=== PATIENT | female | born 1990 | race American Indian/Alaskan Native ===

== ENCOUNTER 2017-06-05 13:01 | Emergency (ER) | payer MEDICAID, OTHER ==
[2017-06-05] MEDS ORDERED: MOTRIN PO ONE (19:17)
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
[2017-06-05 19:57] VITALS: BP 128/76
== END 2017-06-05 19:57 | disposition home or self-care (01) ==
LOC: ED 13:01
DX: S13.4XXA Sprain of ligaments of cervical spine, initial encounter (principal); Z88.8 Allergy status to other drugs, medicaments and biological substances; J45.909 Unspecified asthma, uncomplicated; V89.2XXA Person injured in unspecified motor-vehicle accident, traffic, initial encounter; Y93.89 Activity, other specified; Y92.89 Other specified places as the place of occurrence of the external cause; Y99.8 Other external cause status
CPT/HCPCS: 99282

== ENCOUNTER 2018-11-26 06:17 | Emergency (ER) | payer SELFPAY ==
[2018-11-26 06:23] VITALS: BP 113/65
[2018-11-26] MEDS ORDERED: TORADOL IM ONE (08:25)
--- NOTE | 2018-11-26 08:25 | Emergency Department Report ---
ED ENT HPI - General Chief complaint: Dental/Oral Stated complaint: TOOTHACHE Source: patient Mode of arrival: Ambulatory Limitations: No Limitations - History of Present Illness Initial comments: This is a 28-year-old -[place] Citizen female presents to the emergency room with dental pain for 2 days. Patient reports pain is on the left lower side. She reported to the #18 broke last week and pain started 2 days ago. He reports mild swelling. She is currently taken ibuprofen with no relief of pain. She denies difficulty swallowing, drooling, fever, or sore throat. MD complaint: tooth pain Onset/Timin -: days(s) Location: tooth # (18) Severity: moderate Severity scale (0 -10): 7 Quality: aching Consistency: intermittent Improves with: none Worsens with: eating Context- Dental: history of dental caries, trauma, poor dental care Associated Symptoms: gum swelling, toothache. denies: fever, cough, pain with swallowing, sore throat, tinnitus, hearing loss, discharge from ear, rhinorrhea - Related Data Previous Rx's Medication Instructions Recorded Last Taken Type Albuterol Sulfate [Proventil HFA] 2 puff IH Q6H PRN #1 inh 01/18/14 Unknown Rx Azithromycin [Zithromax Z-QAMAR] 250 mg PO DAILY #6 tablet 01/18/14 Unknown Rx Promethazine /Codeine 5 ml PO Q6H PRN #120 ml 01/18/14 Unknown Rx [Phenergan/Codeine 6.25-10 mg/5 ml] methOCARBAMOL [Robaxin TAB] 500 mg PO BID #10 tab 06/05/17 Unknown Rx Clindamycin [Clindamycin CAP] 300 mg PO Q8H #30 cap 04/08/18 Unknown Rx Ibuprofen [Motrin 600 MG tab] 600 mg PO Q8H PRN #30 tablet 04/08/18 Unknown Rx Clindamycin [Clindamycin CAP] 300 mg PO Q8H #21 cap 11/26/18 Unknown Rx Naproxen [Naprosyn TAB] 500 mg PO BID PRN #20 tablet 11/26/18 Unknown Rx traMADol [Ultram 50 MG tab] 50 mg PO Q6HR PRN #12 tablet 11/26/18 Unknown Rx Allergies Allergy/AdvReac Type Severity Reaction Status Date / Time cephalexin AdvReac Itching Verified 01/18/14 14:59 ED Dental HPI - General Chief complaint: Dental/Oral Stated complaint: TOOTHACHE Source: patient Mode of arrival: Ambulatory Limitations: No Limitations - Related Data Previous Rx's Medication Instructions Recorded Last Taken Type Albuterol Sulfate [Proventil HFA] 2 puff IH Q6H PRN #1 inh 01/18/14 Unknown Rx Azithromycin [Zithromax Z-QAMAR] 250 mg PO DAILY #6 tablet 01/18/14 Unknown Rx Promethazine /Codeine 5 ml PO Q6H PRN #120 ml 01/18/14 Unknown Rx [Phenergan/Codeine 6.25-10 mg/5 ml] methOCARBAMOL [Robaxin TAB] 500 mg PO BID #10 tab 06/05/17 Unknown Rx Clindamycin [Clindamycin CAP] 300 mg PO Q8H #30 cap 04/08/18 Unknown Rx Ibuprofen [Motrin 600 MG tab] 600 mg PO Q8H PRN #30 tablet 04/08/18 Unknown Rx Clindamycin [Clindamycin CAP] 300 mg PO Q8H #21 cap 11/26/18 Unknown Rx Naproxen [Naprosyn TAB] 500 mg PO BID PRN #20 tablet 11/26/18 Unknown Rx traMADol [Ultram 50 MG tab] 50 mg PO Q6HR PRN #12 tablet 11/26/18 Unknown Rx Allergies Allergy/AdvReac Type Severity Reaction Status Date / Time cephalexin AdvReac Itching Verified 01/18/14 14:59 ED Review of Systems ROS: Stated complaint: TOOTHACHE Other details as noted in HPI Constitutional: denies: chills, fever ENT: dental pain. denies: ear pain, throat pain Respiratory: denies: cough, shortness of breath, wheezing Cardiovascular: denies: chest pain, palpitations Gastrointestinal: denies: abdominal pain, nausea, diarrhea Skin: denies: rash, lesions Neurological: denies: headache, weakness, paresthesias Psychiatric: denies: anxiety, depression ED Past Medical Hx - Past Medical History Previous Medical History?: No Hx Asthma: (Bronchitis) - Surgical History Past Surgical History?: Yes Additional Surgical History: Orthopaedic right foot - Social History Smoking Status: Former Smoker Substance Use Type: Marijuana - Medications Home Medications: Home Medications Medication Instructions Recorded Confirmed Last Taken Type Albuterol Sulfate [Proventil HFA] 2 puff IH Q6H PRN #1 inh 01/18/14 Unknown Rx Azithromycin [Zithromax Z-QAMAR] 250 mg PO DAILY #6 tablet 01/18/14 Unknown Rx Promethazine /Codeine 5 ml PO Q6H PRN #120 ml 01/18/14 Unknown Rx [Phenergan/Codeine 6.25-10 mg/5 ml] methOCARBAMOL [Robaxin TAB] 500 mg PO BID #10 tab 06/05/17 Unknown Rx Clindamycin [Clindamycin CAP] 300 mg PO Q8H #30 cap 04/08/18 Unknown Rx Ibuprofen [Motrin 600 MG tab] 600 mg PO Q8H PRN #30 tablet 04/08/18 Unknown Rx Clindamycin [Clindamycin CAP] 300 mg PO Q8H #21 cap 11/26/18 Unknown Rx Naproxen [Naprosyn TAB] 500 mg PO BID PRN #20 tablet 11/26/18 Unknown Rx traMADol [Ultram 50 MG tab] 50 mg PO Q6HR PRN #12 tablet 11/26/18 Unknown Rx ED Physical Exam - General Limitations: No Limitations General appearance: alert, in no apparent distress - ENT ENT exam: Present: normal orophraynx, mucous membranes moist, other (mucosal swelling around #18, tenderness, no palpable cyst pockets) - Neck Neck exam: Present: normal inspection - Respiratory Respiratory exam: Present: normal lung sounds bilaterally. Absent: respiratory distress - Cardiovascular Cardiovascular Exam: Present: regular rate, normal rhythm. Absent: systolic murmur, diastolic murmur, rubs, gallop - Neurological Exam Neurological exam: Present: alert, oriented X3 - Psychiatric Psychiatric exam: Present: normal affect, normal mood - Skin Skin exam: Present: warm, dry, intact, normal color. Absent: rash ED Course Vital Signs 11/26/18 06:19 Temperature 98 F Pulse Rate 92 H Respiratory 18 Rate Blood Pressure 113/65 O2 Sat by Pulse 98 Oximetry ED Medical Decision Making - Medical Decision Making This is a 28-year-old female that presents with toothache from avulsion #18 tooth for 2 days. Patient is stable and was examined by me. Given Toradol once in ER. Susceptible of dental avulsion. Start clindamycin, tramadol, and naproxen. Discussed plan with patient. She agreed with ER plan. Referral to Emergency dental to follow up. Discharged stable. Critical care attestation.: If time is entered above; I have spent that time in minutes in the direct care of this critically ill patient, excluding procedure time. ED Disposition Clinical Impression: Toothache Avulsion of tooth Qualifiers: Encounter type: initial encounter Qualified Code(s): S03.2XXA - Dislocation of tooth, initial encounter Disposition: TO HOME OR SELFCARE Is pt being admited?: No Does the pt Need Aspirin: No Condition: Stable Instructions: Toothache (ED), Dental Caries (ED) Additional Instructions: Complete full course of antibiotics as prescribed. Follow up with a dentist from the referral list low as discussed. Return to the emergency room if worsening symptoms. Prescriptions: Clindamycin [Clindamycin CAP] 300 mg PO Q8H #21 cap Naproxen [Naprosyn TAB] 500 mg PO BID PRN #20 tablet PRN Reason: Pain, Moderate (4-6) traMADol [Ultram 50 MG tab] 50 mg PO Q6HR PRN #12 tablet PRN Reason: Pain Referrals: [facility] [Outside] - 3-5 Days [facility] [Outside] - 3-5 Days [facility] [Outside] - 3-5 Days Forms: Work/School Release Form(ED) Time of Disposition: 08:50
== END 2018-11-26 09:08 | disposition home or self-care (01) ==
LOC: ED 06:17
DX: S03.2XXA Dislocation of tooth, initial encounter (principal); J45.909 Unspecified asthma, uncomplicated; F12.10 Cannabis abuse, uncomplicated; Z87.891 Personal history of nicotine dependence; X58.XXXA Exposure to other specified factors, initial encounter; Y93.89 Activity, other specified; Y92.89 Other specified places as the place of occurrence of the external cause; Y99.8 Other external cause status
CPT/HCPCS: 96372; 99282; J1885

== ENCOUNTER 2019-01-01 13:55 | Emergency (ER) | payer SELFPAY ==
[2019-01-01 14:48] VITALS: BP 124/73
== END 2019-01-01 15:52 | disposition left against medical advice (07) ==
LOC: ED 13:55
DX: O20.8 Other hemorrhage in early pregnancy (principal); Z53.21 Procedure and treatment not carried out due to patient leaving prior to being seen by health care provider

== ENCOUNTER 2019-06-27 19:59 | Emergency (ER) | payer MEDICAID, OTHER ==
[2019-06-27 20:26] VITALS: BP 124/77
--- NOTE | 2019-06-27 21:40 | Emergency Department Report ---
ED Eye Problem HPI - General Chief complaint: Allergic Reaction Stated complaint: ALLERGIC REACTION Time Seen by Provider: 06/27/19 21:34 Source: patient Mode of arrival: Ambulatory Limitations: No Limitations - History of Present Illness Initial comments: pt is a 29 yo female who presents to the ED with c/o allergic reaction to the eyes that began this morning. she states she had eyelashes put on yesterday and felt like she had a reaction to the glue. she states when she woke up this morning with erythema of the eyes. she did not get anything into the eyes. she took the eyelashes out. she denies any vision changes. she denies any contact lens use. she denies any pain in the eyes. - Related Data Previous Rx's Medication Instructions Recorded Last Taken Type Albuterol Sulfate [Proventil HFA] 2 puff IH Q6H PRN #1 inh 01/18/14 Unknown Rx Azithromycin [Zithromax Z-QAMAR] 250 mg PO DAILY #6 tablet 01/18/14 Unknown Rx Promethazine /Codeine 5 ml PO Q6H PRN #120 ml 01/18/14 Unknown Rx [Phenergan/Codeine 6.25-10 mg/5 ml] methOCARBAMOL [Robaxin TAB] 500 mg PO BID #10 tab 06/05/17 Unknown Rx Clindamycin [Clindamycin CAP] 300 mg PO Q8H #30 cap 04/08/18 Unknown Rx Ibuprofen [Motrin 600 MG tab] 600 mg PO Q8H PRN #30 tablet 04/08/18 Unknown Rx Clindamycin [Clindamycin CAP] 300 mg PO Q8H #21 cap 11/26/18 Unknown Rx Naproxen [Naprosyn TAB] 500 mg PO BID PRN #20 tablet 11/26/18 Unknown Rx traMADoL [Ultram 50 MG tab] 50 mg PO Q6HR PRN #12 tablet 11/26/18 Unknown Rx Ketotifen Fumarate 1 drop OP BID 7 Days #1 bottle 06/27/19 Unknown Rx Polymyxin B Sulf/Trimethoprim 1 drop OP Q3HR 7 Days #1 bottle 06/27/19 Unknown Rx [Polytrim Eye Drops] diphenhydrAMINE [Benadryl CAP] 50 mg PO Q8HR PRN #14 capsule 06/27/19 Unknown Rx Allergies Allergy/AdvReac Type Severity Reaction Status Date / Time cephalexin AdvReac Itching Verified 01/01/19 14:12 ED Review of Systems ROS: Stated complaint: ALLERGIC REACTION Other details as noted in HPI Comment: All other systems reviewed and negative ED Past Medical Hx - Past Medical History Previous Medical History?: Yes Hx Asthma: (Bronchitis) Additional medical history: MISCARRIAGE HIGH RISK - Surgical History Past Surgical History?: Yes Additional Surgical History: Orthopaedic right foot - Social History Smoking Status: Never Smoker Substance Use Type: None - Medications Home Medications: Home Medications Medication Instructions Recorded Confirmed Last Taken Type Albuterol Sulfate [Proventil HFA] 2 puff IH Q6H PRN #1 inh 01/18/14 Unknown Rx Azithromycin [Zithromax Z-QAMAR] 250 mg PO DAILY #6 tablet 01/18/14 Unknown Rx Promethazine /Codeine 5 ml PO Q6H PRN #120 ml 01/18/14 Unknown Rx [Phenergan/Codeine 6.25-10 mg/5 ml] methOCARBAMOL [Robaxin TAB] 500 mg PO BID #10 tab 06/05/17 Unknown Rx Clindamycin [Clindamycin CAP] 300 mg PO Q8H #30 cap 04/08/18 Unknown Rx Ibuprofen [Motrin 600 MG tab] 600 mg PO Q8H PRN #30 tablet 04/08/18 Unknown Rx Clindamycin [Clindamycin CAP] 300 mg PO Q8H #21 cap 11/26/18 Unknown Rx Naproxen [Naprosyn TAB] 500 mg PO BID PRN #20 tablet 11/26/18 Unknown Rx traMADoL [Ultram 50 MG tab] 50 mg PO Q6HR PRN #12 tablet 11/26/18 Unknown Rx Ketotifen Fumarate 1 drop OP BID 7 Days #1 bottle 06/27/19 Unknown Rx Polymyxin B Sulf/Trimethoprim 1 drop OP Q3HR 7 Days #1 bottle 06/27/19 Unknown Rx [Polytrim Eye Drops] diphenhydrAMINE [Benadryl CAP] 50 mg PO Q8HR PRN #14 capsule 06/27/19 Unknown Rx ED Physical Exam - General Limitations: No Limitations General appearance: alert, in no apparent distress - Head Head exam: Present: atraumatic, normocephalic - Eye Eye exam: Present: PERRL, EOMI, conjunctival injection (bilaterally), other (erythema present to the bilateral eyes, no blistering, no drainage). Absent: periorbital swelling, periorbital tenderness - ENT ENT exam: Present: mucous membranes moist - Neurological Exam Neurological exam: Present: alert, oriented X3 - Psychiatric Psychiatric exam: Present: normal affect, normal mood - Skin Skin exam: Present: warm, dry, intact ED Course Vital Signs 06/27/19 06/27/19 20:09 21:34 Temperature 98.0 F 98 F Pulse Rate 80 83 Respiratory 18 18 Rate Blood Pressure 124/77 124/77 O2 Sat by Pulse 99 100 Oximetry ED Medical Decision Making - Medical Decision Making pt is a 29 yo female who presents to the ED with c/o allergic reaction to the eyes that began this morning. she states she had eyelashes put on yesterday and felt like she had a reaction to the glue. she states when she woke up this morning with erythema of the eyes. she did not get anything into the eyes. she took the eyelashes out. she denies any vision changes. she denies any contact lens use. she denies any pain in the eyes. VSS. on exam: erythema present to the bilateral eyes, no blistering, no drainage. examination consistent with allergic conjunctivitis. pt given prescription for polytrim, zatidor, and benadryl. advsied pt to please use medication as prescribed. use the allergic eye drops first then one hour later use the other eye drops. avoid rubbing the eyes. follow up with a primary care doctor in the next 2-3 days for reexamination. return to the emergency room for any new or worsening symptoms. - Differential Diagnosis allergic conjunctivitis, bacterial conjuncitivitis, corneal abrasion, ulcer Critical care attestation.: If time is entered above; I have spent that time in minutes in the direct care of this critically ill patient, excluding procedure time. ED Disposition Clinical Impression: Allergic conjunctivitis Qualifiers: Laterality: bilateral Qualified Code(s): H10.13 - Acute atopic conjunctivitis, bilateral Disposition: TO HOME OR SELFCARE Is pt being admited?: No Does the pt Need Aspirin: No Condition: Stable Instructions: Conjunctivitis (ED) Additional Instructions: please use medication as prescribed. use the allergic eye drops first then one hour later use the other eye drops. avoid rubbing the eyes. follow up with a primary care doctor in the next 2-3 days for reexamination. return to the emergency room for any new or worsening symptoms. Prescriptions: diphenhydrAMINE [Benadryl CAP] 50 mg PO Q8HR PRN #14 capsule PRN Reason: itching/irritation Ketotifen Fumarate 1 drop OP BID 7 Days #1 bottle Polymyxin B Sulf/Trimethoprim [Polytrim Eye Drops] 1 drop OP Q3HR 7 Days #1 bottle Referrals: DILIP RICE MD [Staff Physician] - 2-3 Days [facility] [Outside] - 2-3 Days [facility] [Outside] - 2-3 Days Forms: Work/School Release Form(ED) Time of Disposition: 21:41 Print Language: CITIZEN OF [place]
== END 2019-06-27 22:14 | disposition home or self-care (01) ==
LOC: ED 19:59
DX: H10.13 Acute atopic conjunctivitis, bilateral (principal); J44.9 Chronic obstructive pulmonary disease, unspecified; Z79.899 Other long term (current) drug therapy; Z88.8 Allergy status to other drugs, medicaments and biological substances
CPT/HCPCS: 99282